=== PATIENT | female | born 1970 | race Caucasian/White ===

== ENCOUNTER 2017-05-29 19:51 | Emergency (ER) | payer OTHER ==
[2017-05-29 20:09] VITALS: BP 110/84; PULSE 91; RESP 16; TEMP 97.9; O2SAT 96
[2017-05-29] MEDS ORDERED: IBUPROFEN 600 MG TAB PO ONE ×2 (20:20→20:21)
--- NOTE | 2017-05-29 20:34 | EDPHY ---
H & P Stated Complaint: Burn on left fingers Time Seen by Provider: 05/29/17 20:33 HPI/ROS: HPI: This is a 47-year-old female presents with Chief Complaint: Burn on left fingers Location: Left 3rd and 4th finger tip pads Quality: Burn Duration: Prior to arrival Signs and Symptoms: No bleeding, no radiation, no numbness, no weakness, no tingling, no incontinence, no decreased range of motion, no swelling, + pain, + blisters Timing: Sudden Severity: Moderate Context: Patient was at home cooking using a cast iron pain and combining extra virgin olive oil and butter to saute some vegetables. She used napkin to wipe the oil and accidentally touched her left 3rd and 4th fingertips. She felt immediate pain and burning sensation that was constant and moderate in nature. She rinsed with cold water and called her triage nurse from her insurance company. They advised that she needs to go to the emergency room for further care. Tetanus is up-to-date. Patient drove self to emergency room. Right-hand dominant. Modifying Factors: Cold water Comment: ROS: see HPI Constitutional: No fever, no chills, no weight loss Eyes: No blurred vision Respiratory: No shortness of breath, no cough Cardiovascular: No chest pain Gastrointestinal: No nausea, no vomiting no diarrhea Genitourinary: No dysuria Extremities: No myalgias Neurologic: No weakness, no numbness Skin: No rashes Hematologic: No bruising, no bleeding MEDICAL/SURGICAL/SOCIAL HISTORY: Medical history: Generally healthy. Does not take any regular medications. Surgical history: Right arm ORIF Social history: In a relationship CONSTITUTIONAL: Pleasant extremely well-appearing middle-aged white female, awake and alert, no obvious distress HEENT: Atraumatic and normocephalic, PERRL, EOMI. Tympanic membranes clear. Oropharynx clear, no exudate and moist pink mucosa. Airway patent. No lymphadenopathy. No meningismus. Cardiovascular: Normal S1/S2, regular rate, regular rhythm, without murmur rub or gallop. PULMONARY/CHEST: Symmetrical and nontender. Clear to auscultation bilaterally. Good air movement. No accessory muscle usage. ABDOMEN: Soft, nondistended, nontender, no rebound, no guarding, no peritoneal signs, no masses or organomegaly. No CVAT. EXTREMITIES: 2/2 radial pulses, strength 5/5, DIP/PIP flexion and extension intact; approximately 4-6 mm area of whiteness in mild surrounding erythema noted on the 3rd and 4th finger tip pads of the left hand. There are developing blisters in this area that are painful to touch. There is good perfusion of dermis with intact capillary refill. no deformities, no clubbing, no cyanosis or edema. NEUROLOGICAL: no focal neuro deficits. GCS 15. SKIN: Warm and dry, no erythema. no rash. Good capillary refill. Source: Patient Exam Limitations: No limitations - Personal History LMP (Females 10-55): 22-28 Days Ago Current Tetanus/Diphtheria Vaccine: Yes Current Tetanus Diphtheria and Acellular Pertussis (TDAP): Yes - Medical/Surgical History Hx Asthma: No Hx Chronic Respiratory Disease: No Hx Diabetes: No Hx Cardiac Disease: No Hx Renal Disease: No Hx Cirrhosis: No Hx Alcoholism: No Hx HIV/AIDS: No Hx Splenectomy or Spleen Trauma: No Other PMH: Right arm fx surgery - Social History Smoking Status: Never smoked Constitutional: Initial Vital Signs Temperature (C) 36.6 C 05/29/17 20:04 Heart Rate 91 05/29/17 20:04 Respiratory Rate 16 05/29/17 20:04 Blood Pressure 110/84 H 05/29/17 20:04 O2 Sat (%) 96 05/29/17 20:04 O2 Delivery Mode Room Air Allergies/Adverse Reactions: amoxicillin Allergy (Verified 05/29/17 20:09) Home Medications: Medication Instructions Recorded Neomycn/Bacitrc/Polymyx/Pramox 1 emiliano TP DAILY #14.2 oint...g. 05/29/17 [Neosporin + Pain Relief Oint] Medical Decision Making ED Course/Re-evaluation: Patient given ibuprofen and ice pack applied Tetanus up-to-date Area washed with mild soap and water, topical antibiotic ointment and nonocclusive dressing placed. No signs of neurovascular compromise/tenting of skin/compartment syndrome/ extremities and joints examined above and below area of concern and are neurovascularly intact. BSA equals 0.5-1% Burn care instructions provided to patient in verbal and written form. Differential Diagnosis: Differential diagnosis includes but is not limited to 1st degree burn, second- degree burn, third-degree burn. - Data Points Medications Given: Discontinued Medications Ibuprofen (Motrin) 600 mg PO EDNOW ONE Stop: 05/29/17 20:21 Last Admin: 05/29/17 20:22 Dose: 600 mg Departure - Departure Disposition: Home, Routine, Self-Care Clinical Impression: Second degree burn of finger of left hand Qualifiers: Encounter type: initial encounter Qualified Code(s): T23.222A - Burn of second degree of single left finger (nail) except thumb, initial encounter Condition: Fair Instructions: Superficial Burn (ED), Second Degree Burn (ED) Additional Instructions: Please wash site with mild soap and warm water daily. Apply topical antibiotic ointment and cover with clean sterile dressing daily. Take ibuprofen as needed for pain. Apply ice several times per day for the next 1-2 days. Monitor for signs and symptoms of infection. Referrals: [facility],. [Clinic] - As per Instructions Prescriptions: Neomycn/Bacitrc/Polymyx/Pramox [Neosporin + Pain Relief Oint] 1 emiliano TP DAILY # 14.2 oint...g.
== END 2017-05-29 21:09 | disposition home or self-care (01) ==
PROC: 2W29X4Z Dressing of Left Upper Extremity using Bandage (ICD-10-PCS; principal; 2017-05-29)
DX: T23.222A Burn of second degree of single left finger (nail) except thumb, initial encounter (principal); T31.0 Burns involving less than 10% of body surface; X10.2XXA Contact with fats and cooking oils, initial encounter; Y92.009 Unspecified place in unspecified non-institutional (private) residence as the place of occurrence of the external cause; Y99.8 Other external cause status; Y93.G3 Activity, cooking and baking